=== PATIENT | female | born 1965 | race Caucasian/White ===

== ENCOUNTER 2020-12-31 06:47 | Day surgery (SDC) | payer BC ==
[~2020-12-31 06:47] MED LIST: Lactated Ringers 1,000 ML IV SCH; Lidocaine 1%/Sod Bicarbonate in NS 8.4% 1 ML Syringe IDERM PRN; Morphine 8 MG, EPINEPHrine 0.3 MG, Cefuroxime 750 MG, Ketorolac 30 MG, Sodium Chloride ... PRN; Sodium Chloride 0.9% 10 ML Syringe FLUSH PRN
[2020-12-31] MEDS ORDERED: fentaNYL 100 MCG/2 ML SDV ONE (07:16)
[2020-12-31] MEDS ORDERED: Propofol 200 MG/20 ML SDV ONE ×3 (07:16→09:18)
[2020-12-31] MEDS ORDERED: Midazolam 1 MG/ML 2 ML SDV ONE ×2 (07:16→08:20)
[2020-12-31] MEDS ORDERED: Ondansetron 4 MG/2 ML SDV ONE (07:16)
[2020-12-31] MEDS ORDERED: Lidocaine 1% 4 ML ONE (07:17)
[2020-12-31] MEDS ORDERED: ceFAZolin 1 GM Vial ONE (07:17)
[2020-12-31] MEDS ORDERED: Labetalol 100 MG/20 ML MDV ONE (07:34)
--- NOTE | 2020-12-31 07:38 | PCM.PREANE ---
Preanesthetic Assessment - Procedure Proposed Procedure: right total hip arthroplasty - Anesthesia/Transfusion/Family Hx Anesthesia History: Prior Anesthesia Without Reaction Family History of Anesthesia Reaction: No Transfusion History: No Prior Transfusion(s) - Review of Systems General: No Symptoms Pulmonary: No Symptoms Cardiovascular: No Symptoms Gastrointestinal: No Symptoms Neurological: No Symptoms Other: Reports: Anxiety - Physical Assessment NPO Status Date: 12/30/20 NPO Status Time: 00:00 Vital Signs: Last Vital Signs Temp 36.4 C 12/31/20 07:10 Pulse 79 12/31/20 07:10 Resp 16 12/31/20 07:10 BP 174/112 H 12/31/20 07:10 Pulse Ox 96 12/31/20 07:10 Height: 1.73 m Weight: 71 kg ASA Class: 3 Mental Status: Alert & Oriented x3 Airway Class: Mallampati = 1 Dentition: Reports: Normal Dentition, [place](s), Implants Thyro-Mental Finger Breadths: 3 Mouth Opening Finger Breadths: 3 ROM/Head Extension: Full Lungs: Clear to Auscultation, Normal Respiratory Effort Cardiovascular: Regular Rate, Regular Rhythm, Other (HTN) - Imaging/EKG Impressions: EKG SR rate 68 - Allergies Allergies/Adverse Reactions: Allergies Allergy/AdvReac Type Severity Reaction Status Date / Time No Known Allergies Allergy Verified 12/30/20 13:11 - Anesthesia Plan Pre-Op Medication Ordered: None - Acknowledgements Anesthesia Type Planned: Spinal Pt an Appropriate Candidate for the Planned Anesthesia: Yes Alternatives and Risks of Anesthesia Discussed w Pt/Guardian: Yes Pt/Guardian Understands and Agrees with Anesthesia Plan: Yes PreAnesthesia Questionnaire HEENT History: Reports: Hard of Hearing, Other (See Below) Other HEENT History: has hearing aids Cardiovascular History: Reports: Hypertension Respiratory History: Reports: None Gastrointestinal History: Reports: None Genitourinary History: Reports: None 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: Reports: Other (See Below) Other OB/BYN History: menopausal, dysmenorrhea Musculoskeletal History: Reports: None Neurological History: Reports: None Psychiatric History: Reports: Anxiety Endocrine/Metabolic History: Reports: None Hematologic History: Reports: None Immunologic History: Reports: None Oncologic (Cancer) History: Reports: None Dermatologic History: Reports: Other (See Below) Other Dermatologic History: hyperhidrosis - Infectious Disease History Infectious Disease History: Reports: None - Past Surgical History HEENT Surgical History: Reports: Other (See Below) Other HEENT Surgeries/Procedures: dental implants Cardiovascular Surgical History: Reports: None Respiratory Surgical History: Reports: None GI Surgical History: Reports: Colonoscopy Female Surgical History: Reports: None Male Surgical History: Reports: None Endocrine Surgical History: Reports: None Neurological Surgical History: Reports: None Musculoskeletal Surgical History: Reports: None Oncologic Surgical History: Reports: None Dermatological Surgical History: Reports: None - SUBSTANCE USE Tobacco Use Status *Q: Never Tobacco User Tobacco Use Within Last Twelve Months: No Second Hand Smoke Exposure: No Days Per Week of Alcohol Use: 1 Number of Drinks Per Day: 0 Total Drinks Per Week: 0 Recreational Drug Use History: No - HOME MEDS Home Medications: Home Meds Aspirin [Aspirin EC] 325 mg PO BID #70 tab 12/30/20 [Rx] Cholecalciferol (Vitamin D3) [Vitamin D3] 2,000 unit PO DAILY 12/30/20 [History] Cyclobenzaprine [Flexeril] 10 mg PO BID PRN #20 tab 12/30/20 [Rx] Multivitamin 1 tab PO DAILY 12/30/20 [History] lisinopriL [Lisinopril] 10 mg PO DAILY 12/30/20 [History] oxyCODONE 5 - 10 mg PO Q4H PRN #40 tab 12/30/20 [Rx] - CURRENT (IN HOUSE) MEDS Current Meds: Current Medications Morphine Sulfate 8 mg/Epinephrine HCl 0.3 mg/Cefuroxime Sodium 750 mg/Ketorolac Tromethamine 30 mg/Sodium Chloride 7.9 ml 0 mg .XX ASDIRECTED PRN PRN Reason: Pain Stop: 12/31/20 18:00 Lactated Ringer's (Ringers, Lactated) 1,000 mls @ 125 mls/hr IV ASDIRECTED DUONG Stop: 12/31/20 23:00 Lidocaine/Sodium Bicarbonate (Lidocaine 1%/Sod Bicarbonate In Ns 8.4% 1 Ml Syringe) 0.25 ml IDERM ONETIME PRN PRN Reason: Prior to IV Start Stop: 12/31/20 18:00 Sodium Chloride (Sodium Chloride 0.9% 10 Ml Syringe) 10 ml FLUSH ASDIRECTED PRN PRN Reason: Keep Vein Open Stop: 12/31/20 18:00 Discontinued Medications Cefazolin Sodium (Cefazolin 1 Gm Vial) Confirm Administered Dose 2 gm .ROUTE .STK-MED ONE Stop: 12/31/20 07:18 Fentanyl (Fentanyl 100 Mcg/2 Ml Sdv) Confirm Administered Dose 100 mcg .ROUTE .STK-MED ONE Stop: 12/31/20 07:17 Lidocaine HCl (Xylocaine-Mpf 1%) Confirm Administered Dose 4 mls @ as directed .ROUTE .STK-MED ONE Stop: 12/31/20 07:18 Midazolam HCl (Midazolam 1 Mg/Ml 2 Ml Sdv) Confirm Administered Dose 2 mg .ROUTE .STK-MED ONE Stop: 12/31/20 07:17 Ondansetron HCl (Ondansetron 4 Mg/2 Ml Sdv) Confirm Administered Dose 4 mg .ROUTE .STK-MED ONE Stop: 12/31/20 07:17 Propofol (Propofol 200 Mg/20 Ml Sdv) Confirm Administered Dose 200 mg .ROUTE .STK-MED ONE Stop: 12/31/20 07:17
[2020-12-31] MEDS ORDERED: Vancomycin 1 GM SDV ONE (07:39)
[2020-12-31] MEDS ORDERED: Lactated Ringers 1,000 ML ONE (09:13)
[2020-12-31] MEDS ORDERED: fentaNYL 100 MCG/2 ML SDV IVPUSH PRN (09:58)
--- NOTE | 2020-12-31 09:59 | PCM.POSTAN ---
POST ANESTHESIA ASSESSMENT - MENTAL STATUS Mental Status: Alert, Oriented - VITAL SIGNS Vital Signs: Last Vital Signs Temp 36.4 C 12/31/20 07:10 Pulse 79 12/31/20 07:10 Resp 16 12/31/20 07:10 BP 174/112 H 12/31/20 07:10 Pulse Ox 96 12/31/20 07:10 - RESPIRATORY Respiratory Status: Respiratory Rate WNL, Airway Patent, O2 Saturation Stable - CARDIOVASCULAR CV Status: Pulse Rate WNL, Blood Pressure Stable - GASTROINTESTINAL GI Status: No Symptoms - PAIN Pain Score: 0 - POST OP HYDRATION Hydration Status: Adequate & Stable - OBSERVATIONS Free Text/Narrative:: no anesthesia complications noted
--- NOTE | 2020-12-31 10:41 | CR ---
Pelvis and right hip: AP view of the pelvis was obtained as well as crosstable lateral views of the right hip. Comparison: Prior CT right hip study of 12/18/20. Right hip prosthesis is seen. Components are aligned. Mild amount of soft tissue air is seen. Joint space within the left hip is maintained. Impression: 1. Satisfactory postoperative radiographic appearance of recently placed right hip prosthesis. Diagnostic code #2
[2020-12-31] MEDS ORDERED: oxyCODONE 5 MG Tab PO ONE (12:06)
[2020-12-31] MEDS ORDERED: Cyclobenzaprine 10 MG Tab PO ONE (12:06)
--- NOTE | 2020-12-31 12:30 | PCM48HPAN ---
Post Anesthesia Note - EVALUATION WITHIN 48HRS OF ANESTHETIC Vital Signs in Normal Range: Yes Patient Participated in Evaluation: Yes Respiratory Function Stable: Yes Airway Patent: Yes Cardiovascular Function Stable: Yes Hydration Status Stable: Yes Pain Control Satisfactory: Yes Nausea and Vomiting Control Satisfactory: Yes Mental Status Recovered: Yes Vital Signs: Last Vital Signs Temp 36.9 C 12/31/20 10:45 Pulse 51 L 12/31/20 10:45 Resp 15 12/31/20 12:00 BP 115/80 12/31/20 12:00 Pulse Ox 100 12/31/20 12:00 - COMMENTS/OBSERVATIONS Free Text/Narrative:: no anesthesia complications noted
--- NOTE | 2021-01-07 11:28 | PCM.OPNOTE ---
- General Post-Op/Procedure Note Date of Surgery/Procedure: 12/31/20 Operative Procedure(s): right total hip arthroplasty with [employer] Pre Op Diagnosis: right hip osteoarthritis Post-Op Diagnosis: Same Anesthesia Technique: Local, MAC, Spinal Primary Surgeon: Luther Edwards Anesthesia Provider: Dexter Jeong Psychiatric Cns: Allyson Stanley Psychiatric Cns: Divya Lake EBL in mLs: 200 Complications: None Condition: Good Free Text/Narrative:: 54 4 36+0
--- NOTE | 2021-01-07 12:00 | OR ---
DATE OF OPERATION: 12/31/2020 SURGEON: Luther Edwards MD OPERATION PERFORMED: Right total hip arthroplasty with [employer] robot[employer]. PREOPERATIVE DIAGNOSIS: Right hip osteoarthrosis. POSTOPERATIVE DIAGNOSIS: Right hip osteoarthrosis. ANESTHESIA: Local MAC with spinal. ANESTHESIA PROVIDER: Dexter Jeong CRNA ASSISTANTS: Allyson Stanley PA-C and Divya Lake LPN. ESTIMATED BLOOD LOSS: 200 mL. COMPLICATIONS: None. CONDITION: Stable. IMPLANTS: 1. Dangelo size 54 mm solid Tritanium II acetabular cup. 2. Dangelo size 4 Accolade II stem. 3. Dangelo size 36 +0 Biolox femoral head. DESCRIPTION OF PROCEDURE: The patient was identified in the preoperative holding area. Proper site was marked and identified by the surgeon. The patient was taken back to the operative theater where after adequate anesthesia the patient was placed in left lateral decubitus position. Axillary roll was placed. Pegs were then placed and well padded. Gluteal fold was parallel to the floor. Right hip was then sterilely prepped and draped in the usual sterile fashion. OR time-out was performed. The patient received 2 g IV Ancef. Three small focal incisions were made over the iliac crest 3 fingerbreadths posterior to the ASIS. Three 4.0 Schanz pins were then placed and the [employer] robotic array and checkpoints were placed on the iliac crest. Standard posterior incision was made. This was taken down to the IT band and gluteal fascia which was incised along the incisional length. Charnley retractor was then placed. Checkpoint was placed in the greater trochanter and leg lengths using the [employer] robotics was then measured. Takedown of the short external rotators as well as a capsulotomy was performed from the piriformis down to the lesser trochanter. Hip was then dislocated. Neck cut was completed and found to be adequate. Anterior posterior acetabular retractors were then placed. Circumferential removal of the pulvinar as well as labrum was done at this time. Checkpoint was placed on the superior rim of the acetabulum using the Bovie. 15 points were then obtained intra-articularly as well as extra-articularly and the anterior posterior horns were marked for the [employer] robotic plan. The 54 reamer was then brought in on the [employer] robotic arm and was reamed at 45 degrees of abduction and 20 degrees of anteversion and was found to be an adequate ream. The cup was then placed on the [employer] robotic arm and was impacted in place. The 36 flat liner was impacted in place. Attention was turned to the femur. Box chisel was used out laterally. Starter awl was placed down the canal. Starting with the 0 broach, I was able to broach up to a size 4 which was found to be rotationally and vertically stable. Trial implants with 127- degree neck angle were then placed. The patient had adequate synagogue of leg lengths and was stable throughout range of motion. Bone hook was used to dislocate the hip. Trial implants were removed. The size 4 Accolade II stem was impacted in place and 36 +0 Biolox femoral head was impacted in place. Hip was relocated. #5 Ethibond suture was used for closure of the short external rotators and capsule. 1 L pulse lavage irrigation with Ancef and 400 mL Irrisept irrigation was irrigated through the hip. Periarticular injection was completed. Topical tranexamic acid and vancomycin powder were applied. A #2 barbed suture was used for closure of the IT band and gluteal fascia. 2-0 Vicryl was used subcutaneously, and Prineo was used for the skin closure. The patient tolerated the procedure well and was sent to the PACU in stable condition. MMJERSON /[id number]
== END 2020-12-31 14:19 | disposition home or self-care (01) ==
LOC: JD.SDS 06:47
PROVIDERS: ATTEND Orthopaedic Surgery
DX: M16.11 Unilateral primary osteoarthritis, right hip (principal); Z79.899 Other long term (current) drug therapy; Z01.812 Encounter for preprocedural laboratory examination; Z20.822 Contact with and (suspected) exposure to COVID-19; R26.2 Difficulty in walking, not elsewhere classified
CPT/HCPCS: 27130; 36415; 73501; 86850; 86900; 86901; 87635; 97110; 97116; 97161; A9270; C1713; C1776; J0171; J0690; J0697; J1885; J2250; J2270; J2370; J2405; J2704; J3010; J3370; J3490; J7120; 01214; U0002